=== PATIENT | male | born 1950 | race Caucasian/White ===

== ENCOUNTER → 2018-02-11 | Outpatient (CLI) | payer MEDICARE ==
[2018-02-11 09:35] LABS: HCT 40.7 % (39.0-53.0); HGB 13.8 gm/dL (13.0-17.5); MCH 28.5 pg (25.0-35.0); MCHC 33.9 g/dL (31.0-37.0); Mean Platelet Volume 6.5; Platelet Count 278 k/uL (150-450); RBC 4.84 m/uL (4.30-5.90); RDW 14.6 % (11.5-15.5); WBC 6.8 k/uL (3.8-10.6)
[2018-02-11 09:44] LABS: Anion Gap 13 mmol/L; Blood Urea Nitrogen 24 mg/dL (9-20); Carbon Dioxide 26 mmol/L (22-30); Chloride 102 mmol/L (98-107); Potassium 4.1 mmol/L (3.5-5.1); Sodium 141 mmol/L (137-145)
== END ==
LOC: LABWHC1 09:12
PROVIDERS: ATTEND Internal Medicine Interventional Cardiology
DX: Z01.812 Encounter for preprocedural laboratory examination (principal); I25.10 Atherosclerotic heart disease of native coronary artery without angina pectoris
CPT/HCPCS: 36415; 80051; 82565; 84520; 85027

== ENCOUNTER 2018-02-15 07:51 | Day surgery (SDC) | payer MEDICARE, OTHER ==
[2018-02-10 08:45] VITALS: BMI 26.1
[~2018-02-15 07:51] MED LIST: ALPRAZolam 0.25 MG TAB PO PRN; ALPRAZolam 0.5 MG TAB PO PRN; ASPIRIN 325 MG TAB PO STA; ATORVASTATIN 80 MG TAB PO STA; NITROGLYCERIN SL TABS 0.4 MG TAB SUBLINGUAL PRN; SODIUM CHLORIDE 0.9% 1,000 ML in EMPTY BAG 1 BAG IV ONE
[2018-02-15 08:18] VITALS: PULSE 78; TEMP 98
[2018-02-15 08:47] LABS: Glucose,Whole Blood 99 mg/dL (75-99)
[2018-02-15 08:53] LABS: Prothrombin Time 10.3 sec (9.0-12.0)
[2018-02-15] MEDS ORDERED: SODIUM CHLORIDE 0.9% 1,000 ML IV ONE (09:38)
[2018-02-15] MEDS ORDERED: MIDAZOLAM 2 MG/2 ML VIAL IV ONE (09:45)
[2018-02-15] MEDS ORDERED: LIDOCAINE 2% INJ 20 MG/ML SQ ONE (09:49)
[2018-02-15] MEDS ORDERED: HEPARIN SODIUM 1,000 UN/ML (10ML VL) IV ONE (09:51)
[2018-02-15] MEDS: VERAPAMIL SYRINGE (5 MG/10 ML) INTRAARTER ONE ×2 (09:51→10:01)
[2018-02-15] MEDS ORDERED: IOPAMIDOL-370 125ML BTL INJ ONE (09:59)
[2018-02-15] MEDS ORDERED: RX INFO: IV CONTRAST WAS GIVEN 1 EACH MISC MISCELLANE PRN (10:05)
[2018-02-15] MEDS ORDERED: SODIUM CHLORIDE 0.9% 1,000 ML IV SCH (10:15)
--- NOTE | 2018-02-15 10:33 | CC ---
CARDIAC CATHETERIZATION REPORT DATE OF SERVICE: 02/15/2018 . PERFORMING PHYSICIAN: Serg Oliveira MD, Safety Deposit Supervisor. PROCEDURE PERFORMED: 1. Selective right and left coronary angiogram. 2. Left heart catheterization. INDICATION: This is a pleasant 67-year-old gentleman with diabetes, hypertension, dyslipidemia, and paroxysmal atrial fibrillation. Underwent myocardial perfusion imaging stress test and that revealed ischemia. The heart catheterization was recommended. APPROACH: Right radial artery. COMPLICATION: None. LEVEL OF SEDATION: Moderate with sedation length of 15 minutes. PROCEDURE DESCRIPTION: After obtaining an informed consent, the patient was brought to the Cardiac Mixer Attendant. The right radial artery was cannulated using micropuncture technique and a micropuncture wire passed easily, then I placed a 6-Uzbek sheath in the right radial artery. After that, I did selective right and left coronary angiogram using JR4 and JL3.5 catheters. Before that, I gave the patient 2 mg of verapamil IA and 8000 units of heparin IV. I did left heart catheterization using 6-Uzbek pigtail catheter. The procedure was completed without any complication. CORONARY ANGIOGRAM: 1. The RCA is a large caliber vessel. It is a dominant vessel. It is angiographically normal. 2. The left main is angiographically normal. It bifurcates into left circumflex, ramus intermedius, and left anterior descending artery. The left circumflex is angiographically normal. 3. The ramus intermedius is angiographically normal as well. 4. The LAD is normal as well. The LAD gives rise into a diagonal branch in the midportion and that seems to be angiographically normal. HEMODYNAMICS: The left ventricular end-diastolic pressure was 10 mmHg and no gradient was identified across the aortic valve. CONCLUSION: 1. Normal coronary angiogram. 2. Normal left ventricular end-diastolic pressure. POSTPROCEDURE MANAGEMENT: Medical treatment. MMODL / IJN: [id number] /
[2018-02-15 12:23] VITALS: RESP 18
[2018-02-15 14:17] LABS: Glucose,Whole Blood 124 mg/dL (75-99)
[2018-02-15 15:28] VITALS: BP 151/93
== END 2018-02-15 14:10 | disposition home or self-care (01) ==
LOC: CATHCVL 07:51
PROVIDERS: ATTEND Internal Medicine Interventional Cardiology
DX: R94.39 Abnormal result of other cardiovascular function study (principal); I48.0 Paroxysmal atrial fibrillation; I10 Essential (primary) hypertension; E78.00 Pure hypercholesterolemia, unspecified; E11.9 Type 2 diabetes mellitus without complications; Z82.49 Family history of ischemic heart disease and other diseases of the circulatory system; Z79.01 Long term (current) use of anticoagulants; Z79.84 Long term (current) use of oral hypoglycemic drugs; Z79.890 Hormone replacement therapy; Z79.899 Other long term (current) drug therapy; Z87.891 Personal history of nicotine dependence
CPT/HCPCS: 93458; 85610; C1894; C1769 ×2; J2001; J2250; J1644; Q9967